=== PATIENT | male | born 1945 | race American Indian/Alaskan Native ===

== ENCOUNTER 2020-10-21 05:49 | Inpatient (IN) | payer MEDICARE ==
[2020-10-18 10:21] LABS: Hematocrit 41.2 % (35.5-45.6); Hemoglobin 13.8 gm/dl (11.8-15.2); Mean Corpuscular HGB Conc 34 % (32-34); Mean Corpuscular Volume 87 fl (84-94); Platelet Count 162 K/mm3 (140-440); Red Blood Count 4.75 M/mm3 (3.65-5.03); Red Cell Distribution Width 13.9 % (13.2-15.2)
[2020-10-18 11:08] LABS: BUN/Creatinine Ratio 21; Blood Urea Nitrogen 17 mg/dL (9-20); Calcium 9.6 mg/dL (8.4-10.2); Hemolysis Index 9
[~2020-10-21 05:49] MED LIST: ceFAZolin/Water 2 GM/20 ML 2 GM/20 ML SYRINGE IV NR
[2020-10-21] MEDS ORDERED: LACTATED RINGERS 1,000 ML ONE (06:59)
--- NOTE | 2020-10-21 07:02 | XRay Report ---
EXAMINATION: Right knee radiograph, 2 views, 10/21/2020 CLINICAL INFORMATION: Preoperative evaluation COMPARISON: None. FINDINGS: There are advanced degenerative and erosive changes of the right knee without definitive fr acture. Signer Name: Radhika Barth MD Signed: 10/21/2020 6:57 AM Workstation Name: [id number]
[2020-10-21] MEDS ORDERED: dexAMETHasone 20 MG/5 ML VIAL ONE (07:04)
[2020-10-21] MEDS ORDERED: SUCCINYLCHOLINE CHLORIDE 200 MG/10 ML INJ MDV ONE (07:04)
[2020-10-21] MEDS ORDERED: KETOROLAC 30 MG/1 ML INJ ONE ×2 (07:04→07:24)
[2020-10-21] MEDS ORDERED: LIDOCAINE MPF (2%) 20 MG/1 ML VIAL 5 ML ONE (07:04)
[2020-10-21] MEDS ORDERED: ONDANSETRON 4 MG/2 ML INJ ONE (07:04)
[2020-10-21] MEDS ORDERED: propofoL 200 MG/20 ML VIAL IV ONE (07:05)
[2020-10-21] MEDS: LACTATED RINGERS 1,000 ML IV SCH ×2 (07:05→12:31)
[2020-10-21] MEDS ORDERED: fentaNYL 100 MCG/2 ML INJ ONE ×2 (07:23→10:00)
[2020-10-21] MEDS ORDERED: BUPIVACAINE/PF (0.5%) 5 MG/1 ML 10 ML VIAL INFILTRATI ONE ×3 (07:24→10:52)
[2020-10-21] MEDS ORDERED: MORPHINE 10 MG/1 ML INJ ONE (07:25)
[2020-10-21] MEDS ORDERED: SODIUM CHLORIDE 0.9% 50 ML ONE (07:25)
[2020-10-21] MEDS ORDERED: SODIUM CHLORIDE 0.9% 100 ML ONE (07:25)
--- NOTE | 2020-10-21 07:26 | Anesthesia Day of Surgery ---
Anesthesia Day of Surgery - Day of Surgery Patient Examined: Yes Patient H&P Reviewed: Yes Patient is NPO: Yes
--- NOTE | 2020-10-21 07:32 | Anesthesia Consultation ---
Anesthesia Consult and Med Hx - Pre-Operative Health Status ASA Pre-Surgery Classification: ASA3 Proposed Anesthetic Plan: General Nerve Block: AC - Pulmonary Hx Smoking: No Hx Sleep Apnea: No (MEG PRE SCREEN HIGH RISK) - Cardiovascular System Hx Hypertension: Yes (X 5 YRS) Hx Coronary Artery Disease: No (Pt reports negative NST last year) - Central Nervous System Hx Psychiatric Problems: No - Gastrointestinal Hx Gastroesophageal Reflux Disease: No - Endocrine Hx Renal Disease: No Hx Non-Insulin Dependent Diabetes: No - Hematic Hx Anemia: No Hx Sickle Cell Disease: No - Other Systems Hx Cancer: No
[2020-10-21] MEDS ORDERED: ONDANSETRON 4 MG/2 ML INJ IV PRN (07:33)
[2020-10-21] MEDS ORDERED: HYDROmorphone 1 MG/1 ML INJ IV PRN (07:33)
[2020-10-21] MEDS ORDERED: ACETAMINOPHEN 325 MG TAB PO NR (07:33)
[2020-10-21] MEDS ORDERED: fentaNYL 100 MCG/2 ML INJ IV NR (07:33)
[2020-10-21] MEDS ORDERED: MAGNESIUM OXIDE 400 MG TAB PO NR (07:33)
[2020-10-21] MEDS ORDERED: BUPIVACAINE/PF (0.25%) 2.5 MG/ML 30 ML VIAL INFILTRATI ONE (07:38)
[2020-10-21] MEDS ORDERED: dexAMETHasone 4 MG/ML VIAL ONE (07:39)
[2020-10-21] MEDS ORDERED: NEOMY 40 MG/POLYMYXIN B 200,000 UNITS/ML (GU) AMPULE IR ONE ×2 (07:58→10:12)
[2020-10-21] MEDS ORDERED: CELECOXIB 200 MG CAP PO NR (08:00)
[2020-10-21] MEDS ORDERED: MIDAZOLAM 2 MG/2 ML INJ IV NR (08:00)
[2020-10-21] MEDS ORDERED: ePHEDrine SULFATE 50 MG/1 ML INJ ONE (08:49)
[2020-10-21] MEDS ORDERED: PHENYLEPHRINE/NS 1,000 MCG/10 ML SYRINGE (OR USE) IV ONE (09:00)
[2020-10-21] MEDS ORDERED: TRANEXAMIC ACID 1,000 MG/10 ML ONE (09:03)
[2020-10-21] MEDS ORDERED: SODIUM CHLORIDE 0.9% 100 ML IVPB IV ONE ×2 (09:44→10:52)
[2020-10-21] MEDS ORDERED: MORPHINE 10 MG/1 ML INJ IM ONE ×2 (09:44→10:39)
[2020-10-21] MEDS ORDERED: KETOROLAC 30 MG/1 ML INJ IV ONE ×2 (09:44→10:52)
--- NOTE | 2020-10-21 11:13 | Procedure Note ---
Date of procedure: 10/21/20 Pre-op diagnosis: Severe arthritis right knee Post-op diagnosis: same Procedure: [Right] total knee replacement Procedure The patient was brought to the OR after being given a obturator nerve block and preoperative holding he was placed on the OR table supine position following induction elevation of anesthesia the patient is [right] lower extremity was prepped and draped in the usual sterile manner. A timeout procedure was done to identify the patient in the correct operative site. The leg was exsanguinated followed by inflation of the pneumatic tourniquet to 300 mmHg. A midline incision was made over the patella was taken down distally towards the tibial tubercle next the medial retinaculum was incised and the patella was inverted examination of the patient's knee joint revealed typical osteoarthritic changes with large bone spurs noted primarily in the medial compartment both the femoral and tibial's articular surfaces exhibited bare bone and large peripheral osteophytes next a large drill bit was used to enter the medullary canal this was followed by placement of the distal femoral cutting Jig the distal femur was resected approximately 8-9 mm of bone was removed at this time. Attention was turned to the patient's proximal tibia using a external alignme guide the bone was cut using the medial surface as the low point of care was taken to protect the medial collateral ligaments the tibial articular surface was 7-sized a #4 tibial based ray was selected this was followed by placement of the fixation hole or keel into the proximal tibial artery medullary canal. Attention was turned to the distal femur and using a 4 and 1 cutting block a #4 component was selected AP anterior and posterior as well as Hartman cuts were made a +3 tibial ostomy femoral component was placed and the knee was then taken to a range of motion he appeared to have stability in both the flexion and extension FOLLOWING this the trial components were removed the knee was then copiously irrigated any remaining soft tissue and bony debris were removed at this time next the cement was next and following this the tibial components were inserted beginning with the based ray followed by the polyethylene insert The femoral component was added the excess were removed the knee was held in extension until the cement hardened following hardening of cement the knee was then brought back into of flexion any remaining soft tissue and bony debris were removed at this time. The wound again was irrigated and was closed in a standard routine fashion. Dressings were applied the patient tolerated the procedure there were no complications she was then taken to post anesthesia recovery Anesthesia: MAC, regional Surgeon: JULES RODRIGUEZ (Cornelius Swenson M.D. 1st assist) Estimated blood loss: minimal Pathology: list (portions of bone and cartilage from right knee sent to path) Specimen disposition: to lab Condition: stable Disposition: PACU
[2020-10-21] MEDS: HYDROmorphone 1 MG/1 ML INJ IV PRN ×4 (11:20→11:50)
[2020-10-21] MEDS: MORPHINE 4 MG/1 ML INJ IV PRN (14:25)
--- NOTE | 2020-10-21 17:12 | Post Anesthesia Evaluation ---
- Post Anesthesia Evaluation Patient Participated: Yes Airway Patent: Yes Stable Respiratory Function: Yes Nausea/Vomiting: No Temp > 96.8F: Yes Pain Manageable: Yes Adequeate Hydration: Yes Anesthesia Complications: No Block Receding Appropriately: Yes Patient on Ventilator: No
--- NOTE | 2020-10-21 17:26 | XRay Report ---
RIGHT KNEE 3 VIEWS INDICATION / CLINICAL INFORMATION: Postop evaluation. COMPARISON: Earlier today. FINDINGS: There is a new right knee prosthesis with mild postsurgical gas in the soft tissues. There is no evid ence of acute fracture or subluxation. No complication of surgery is seen. Signer Name: Tommy Guerra MD Signed: 10/21/2020 5:21 PM Workstation Name: [id number]
[2020-10-21] MEDS: KETOROLAC 30 MG/1 ML INJ IV PRN (20:45)
[2020-10-22] MEDS: LACTATED RINGERS 1,000 ML IV SCH (00:29)
[2020-10-22] MEDS: hydroCHLOROthiazide 12.5 MG CAP PO SCH ×2 (00:29→09:38)
[2020-10-22] MEDS: LOSARTAN 50 MG TAB PO SCH ×2 (00:29→09:38)
[2020-10-22] MEDS: MORPHINE 4 MG/1 ML INJ IV PRN ×3 (00:30→09:37)
[2020-10-22] MEDS: ONDANSETRON 4 MG/2 ML INJ IV PRN ×2 (05:49→09:37)
--- OUTSIDE RECORDS SUMMARY | 2020-10-22 07:14 | External Medical Summary ---
:1945 Author Organization [facility], [facility] Address [address] [place] [id number] Care Team Providers Name Role Phone Chuck Tommy Unavailable [phone] PROBLEMS Type Condition ICD9-CM [id number] Onset Condition W/U Status Risk SNOM ED Notes Code Code Dates Status Code Problem Unilateral M17.11 Active confirmed 642398638 primary osteoarthriti s, right knee Problem Unilateral M17.10 Active confirmed [id number] primary osteoarthriti s, unspecified knee ALLERGIES No Known Allergies ENCOUNTERS from 1945 to 2020-10-21 Encounter Location Date Provider Diagnosis [address], [place] [address] IMMUNIZATIONS No Information SOCIAL HISTORY Sex Assigned At : Social History Observation Description Sex Assigned At Unknown REASON FOR REFERRAL from 1945 to 2020-10-21 Diagnosis 1 Unilateral primary osteoarth ritis, unspecified knee (M17.10) Diagnosis 2 Unilateral primary osteoarth ritis, right knee (M17.11) Referral Organization [facility] Referring Provider First Name Tommy Referring Provider Last Name Chuck Referring Provider Specialty Orthopedic Surgery Referred Provider [facility], - Referral Priority Routine VITAL SIGNS No information MEDICATIONS Medication SIG (Take, Route, Notes Start Date End Date Status Frequency, Duration) Gabapentin 300 MG 1 capsule Orally Once a Active day for 30 day(s) Losartan Potassium 50 MG 1 tablet Orally Once a day Active for 30 day(s) Hydrochlorothiazide-12.5 one tablet Orally once a Active mg 12.5 mg day for 30 day(s) Vitamin A & D 5000-400 as directed Orally Active UNIT HYDROcodone-Acetaminophen 5 ml as needed Orally Active 10-325 MG/15ML every 6 hrs tiZANidine HCl 2 MG 1 tablet as needed Orally Active Three times a day PROCEDURES No Information RESULTS No Results REASON FOR VISIT RT Total Knee Replacement MEDICAL (GENERAL) HISTORY Type Description Date Medical History arthritis Medical History Joint disease Medical History htn Medical History anemia Surgical History No Surgical history information Goals Section No Information Health Concerns No Information MEDICAL EQUIPMENT No Information MENTAL STATUS No Information FUNCTIONAL STATUS No Information ASSESSMENTS No Information PLAN OF TREATMENT Referrals Referral Date Details Insurance Providers Payer Name Payer Address Payer Insured Patient Coverage Cover age End Phone Name Relationship to Start Date Vinicius e Insured Medicare [address] [phone] Annel Carmen self [facility] [address] [id number] Medicaid [address] [phone] Annel Carmen self [facility] [address] [id number]
[2020-10-22] MEDS: KETOROLAC 30 MG/1 ML INJ IV PRN (09:37)
[2020-10-22] MEDS ORDERED: ENOXAPARIN 40 MG/0.4 ML INJ SUB-Q SCH (10:00)
--- NOTE | 2020-10-22 10:26 | Event Note ---
Date: 10/22/20 I responded to code met/rapid response, nurse reports that patient had severe pain rt.lower extremity, and concern for absent pulses. 75-year-old obese male patient underwent right total knee replacement on 10/21/2020. nurse noted severe swelling of the right lower extremity with concern for absent pulses, when I evaluated the patient patient is alert and awake complains of severe pain and cramps in the right lower extremity, mild elevation of blood pressure probably because of pain , O2 sats are within normal limits. On bedside Doppler Rt LE pulses are present Advised to elevate the limb, pain medications, get lower extremity venous Doppler to evaluate for DVT. And asked the nurse to inform Ortho surgeon Dr. Woods.
--- NOTE | 2020-10-22 12:58 | Post Anesthesia Evaluation ---
- Post Anesthesia Evaluation Patient Participated: Yes Airway Patent: Yes Stable Respiratory Function: Yes Nausea/Vomiting: No Temp > 96.8F: Yes Pain Manageable: Yes Adequeate Hydration: Yes Anesthesia Complications: No Block Receding Appropriately: Not Applicable Patient on Ventilator: No
--- NOTE | 2020-10-22 13:02 | Discharge Summary ---
Providers - Providers Date of Admission: 10/21/20 05:49 Date of discharge: 10/22/20 Attending physician: JULES RODRIGUEZ MD 10/21/20 11:05 Physical Therapy Evaluation and Treat [CONS] Routine Comment: Reason For Exam: post op evaluation Weight bearing status?: Full wt bearing Assistive devices?: Yes Primary care physician: CAROLINE RENEE Hospitalization Condition: Stable Hospital course: 75-year-old male with a long history of right knee pain and swelling plain x- rays preoperatively show severe osteoarthritis patient was admitted to the hospital was taken to the operating room where right total knee replacement was done without complications. Postoperatively he was seen by physical therapy was given instructions on gait weightbearing and range of motion exercises, in addition Case management services were also consulted for home health physical therapy Disposition: DC/- HOME [facility] Final Discharge Diagnosis (Prints w/discharge instructions): Severe arthritis right knee Core Measure Documentation - Palliative Care Palliative Care/ Comfort Measures: Not Applicable - Core Measures Any of the following diagnoses?: none - VTE Discharge Requirements Deep Vein Thrombosis/Pulmonary Embolism Present on Admission: No Has pt received <5 days of overlap therapy or INR<2.0: Yes Anticoagulant overlap therapy prescribed at discharge: Yes Contraindication No Overlap Therapy order at DC: Medical Contraindication - Acute ID Discharge Requirements Aspirin at discharge: No Reason for no aspirin on DC: Medical contraindication - Heart Failure Discharge Requirements BELÉN/ARB for LVSD if EF <40%: Not Applicable - Stroke Discharge Requirements Statin for LDL = or >70 mg/dl on DC: Not Applicable Exam - Physical Exam Narrative exam: Right knee -superficial blister posterior calf patient has a negative Homans' sign - Constitutional Vitals: Temp Pulse Resp BP Pulse Ox 98.5 F 101 H 16 181/109 100 10/22/20 08:24 10/22/20 08:24 10/22/20 08:24 10/22/20 08:24 10/22/20 08:33 Plan Activity: advance as tolerated Weight Bearing Status: Weight Bear as Tolerated Diet: regular Wound: keep clean and dry Special Instructions: physical therapy Durable Medical Equipment Needed Upon Discharge: Walker-Standard, Bedside Commode Follow up with: CAROLINE RENEE NP-C [Primary Care Provider] - 7 Days Prescriptions: Apixaban [Eliquis] 5 mg PO DAILY #30 tablet oxyCODONE /ACETAMINOPHEN [Percocet 5/325] 1 tab PO Q6HR PRN #30 tablet PRN Reason: Pain
[2020-10-22 15:12] VITALS: BP 163/77
== END 2020-10-22 17:00 | disposition home health service (06) | DRG 470 ==
LOC: 3A 05:49 → 3B-SURG 09:48
PROVIDERS: ADMIT Orthopaedic Surgery; ATTEND Orthopaedic Surgery
PROC: 0SRC0J9 Replacement of Right Knee Joint with Synthetic Substitute, Cemented, Open Approach (ICD-10-PCS; principal; 2020-10-21)
DX: M17.11 Unilateral primary osteoarthritis, right knee (principal); I10 Essential (primary) hypertension; Z20.822 Contact with and (suspected) exposure to COVID-19
CPT/HCPCS: 36415; 64450; 80048; 82962; 85027; G0378; C1776; J0330; J1100; J1170; J1650; J1885; J2250; J2270; J2370; J2405; J2704; J3010; J3490; J7120; U0003